=== PATIENT | female | born 1955 | race Two or more races ===

== ENCOUNTER 2021-09-28 09:14 | Inpatient (IN) | payer MEDICARE, OTHER ==
[~2021-09-28] VITALS: Ht 167.6 cm; Wt 81.6 kg
--- NOTE | 2021-09-28 09:30 | NUR ---
BIBFAMILY MEMBER FOR C/O CP 5/10 RADIATING TO L ARM AND BACK AT 0600 X30 MIN TODAY. DENIES SOB. FIRST TIME HAD CP WAS 10 DAYS AGO AND ON/OFF 4 DAYS. DENIES PAIN AT THIS TIME. IN ROOM AIR AND DENIES SOB. RESPIRATION REGULAR AND UNLABORED. ATTACHED THE PATIENT TO THE MONITOR. WILL CONTINUE TO MONITOR THE PATIENT.
--- NOTE | 2021-09-28 09:32 | NUR ---
DR FERNANDEZ AT THE BEDSIDE
--- NOTE | 2021-09-28 09:50 | NUR ---
COVID ANTIGEN SWAB DONE AND SENT TO THE LAB
--- NOTE | 2021-09-28 09:55 | NUR ---
BLOOD SAMPLE OBTAINED AND SENT TO LAB
--- NOTE | 2021-09-28 09:59 | NUR ---
X-RAY TECH AT THE BEDSIDE
[2021-09-28 10:13] LABS: CALCIUM, SERUM 9.2 mg/dL (8.5-10.1); CARBON DIOXIDE 25 mmol/L (21-32); CHLORIDE 105 mmol/L (98-107); CREATININE 0.7 mg/dL (0.6-1.3); GLUCOSE 121 mg/dL (74-106); POTASSIUM 4.2 mmol/L (3.5-5.1); SODIUM SERUM 139 mmol/L (136-145); UREA NITROGEN, BLOOD 13 mg/dL (7-18)
[2021-09-28 10:17] LABS: BASOPHILS % (AUTO) 0.7 % (0.0-2.0); HEMATOCRIT 37 % (33-45); HEMOGLOBIN 12.5 g/dL (11.5-14.8); LYMPHOCYTES # (AUTO) 1.9 K/uL (0.8-4.8); LYMPHOCYTES % (AUTO) 37.8 % (20.0-44.0); MEAN CORPUSCULAR HGB CONC 34 g/dl (31.0-36.0); MEAN CORPUSCULAR VOLUME 81 fL (82-100); MONOCYTES # (AUTO) 0.4 K/uL (0.1-1.30); MONOCYTES % (AUTO) 7.7 % (2.0-12.0); NEUTROPHILS # (AUTO) 2.6 K/uL (1.8-8.9); NEUTROPHILS % (AUTO) 50.8 % (43.0-81.0); PLATELET COUNT (AUTO) 58 K/uL (150-450); RED BLOOD CELL COUNT(AUTO) 4.55 MIL/uL (4.0-5.2); WHITE BLOOD COUNT (AUTO) 5.1 K/uL (4.3-11.0)
[2021-09-28] MEDS ORDERED: METF-440 PO (10:17)
[2021-09-28] MEDS ORDERED: ICOS1CAP PO (10:17)
[2021-09-28] MEDS ORDERED: MECL-159 PO (10:17)
[2021-09-28] MEDS ORDERED: LISI10TA29 PO (10:17)
[2021-09-28] MEDS ORDERED: LEVO88TA71 PO (10:17)
[2021-09-28 10:26] LABS: ALANINE AMINOTRANSFERASE 23 U/L (12-78); ALBUMIN 3.8 g/dL (3.4-5.0); ALKALINE PHOSPHATASE 46 U/L (46-116); ASPARTATE AMINOTRANSFERASE 14 U/L (15-37); BILIRUBIN,DIRECT 0.1 mg/dL (0.0-0.2); BILIRUBIN,TOTAL 0.3 mg/dL (0.2-1.0); TOTAL PROTEIN, SERUM 7.6 g/dL (6.4-8.2)
[2021-09-28 10:32] LABS: BAND % (MANUAL) 1 % (0.0-5.0); EOSINOPHILS % (MANUAL) 4 % (0-4); LYMPHOCYTES % (MANUAL) 47 % (16-48); MONOCYTES % (MANUAL) 4 % (0-11.0); NEUTROPHILS % (MANUAL) 44 (42-76)
--- NOTE | 2021-09-28 11:20 | NUR ---
PT LAYING IN BED COMFORTABLY, NEEDS MET
--- NOTE | 2021-09-28 12:45 | NUR ---
Jacob chaudhari in [facility] - 09/28/21 at 1250 by RADHA Patient discharged to home in stable condition. Written and verbal after care instructions given. Patient verbalizes understanding of instruction.
--- NOTE | 2021-09-28 12:50 | NUR ---
PT AMBULATED TO RESTROOM. VS STABLE
--- NOTE | 2021-09-28 13:03 | NUR ---
PT LAYING IN BED COMFORTABLY. NEEDS MET
[2021-09-28] MEDS ORDERED: DEXTROSE 50%-WATER 50 ML DISP.SYRIN IV PRN (15:00)
[2021-09-28] MEDS ORDERED: ONDANSETRON HCL/PF 4 MG/2 ML VIAL IVP PRN (15:00)
[2021-09-28] MEDS ORDERED: NITROGLYCERIN 0.4 MG/TAB BOTTLE SL PRN (15:00)
[2021-09-28] MEDS ORDERED: ACETAMINOPHEN 325 MG TABLET PO PRN (15:00)
[2021-09-28] MEDS ORDERED: INSULIN REGULAR, HUMAN 100 UNIT/ML 3 ML VIAL SQ PRN (15:00)
[2021-09-28] MEDS ORDERED: ENOXAPARIN SODIUM 40 MG/0.4 ML DISP.SYRIN SQ SCH (15:00)
[2021-09-28] MEDS ORDERED: MORPHINE SULFATE INJ 2 MG/ML DISP.SYRIN IV PRN (15:00)
[2021-09-28] MEDS ORDERED: Z GUARD REMEDY 4 OZ OINT TP PRN (15:00)
[2021-09-28] MEDS ORDERED: MAG HYDROX/AL HYDROX/SIMETH 30 ML UDC PO PRN (15:00)
[2021-09-28] MEDS ORDERED: *INSULIN REGULAR(HUMULIN R)HUM 100 UNIT/ML VIAL SQ PRN (15:00)
[2021-09-28] MEDS ORDERED: MAGNESIUM HYDROXIDE 30 ML UDC PO PRN (15:00)
[2021-09-28] MEDS ORDERED: MECLIZINE HCL 25 MG TABLET PO PRN (15:00)
[2021-09-28] MEDS ORDERED: Medication Not On Formulary EA (Icosapent Ethyl (Vascepa) 2 GM) PO SCH (17:00)
--- NOTE | 2021-09-28 18:07 | NUR ---
PT TRANSFERRED TO FLOOR FOLLOWING ACLS PROTOCOL WITH EMT AND RN. VS REMAINED STABLE. BEDSIDE REPORT GIVEN.
--- NOTE | 2021-09-28 18:10 | NUR ---
Patient arrived via gurney from ER department at 18:10pm. Patient AO X 4, able to make needs known, can follow simple commands, no apparent distress noted, breathing even and unlabored, no dizziness, no chest pain, no palpitations. Admitting hospitalist made aware of the patient's arrival. Patient admitting diagnosis chest pain. Patient's vital signs within normal limits, no complained of facial numbness or weakness, no extremity numbness or weakness at this time. Skin intact, warm to touch, no pallor or cyanosis noted. Patient oriented with use of call lights, use of bed control, use of telephone and tv control, also introduces LIGHT BULB TESTER and RN assigned for today, verbalized understanding and gratitude. All needs attended, kept clean and dry, call light left within reach, safety precautions in place, brakes locked, side rails up X 2.
--- NOTE | 2021-09-28 18:23 | NUR ---
RN CLOSING NOTES Patient lying in bed, respirations even and unlabored, no shortness of breath, denies any pain or discomfort at this time, remained afebrile, no apparent distress noted, no dizziness, no palpitations, no chest pain noted at this time. No s/s of hypo/hyperglycemia, no tremors, no change in level of consciousness. Patient has peripheral IV line on her left antecubital, patent, intact and flushing well, no s/s of infiltration at site, no swelling, no redness, no pain at site at this time. All needs attended, kept clean and dry, safety precautions in place, brakes locked, side rails up X 2, call light left within reach.
[2021-09-28] MEDS: BLOOD SUGAR DIAGNOSTIC 1 EACH STRIP VI SCH ×2 (18:47→21:54)
--- NOTE | 2021-09-28 19:30 | NUR ---
RN opening notes Received Pt from morning nurse. Pt is laying in bed comfortably talking on the phone with her niece Heather ([phone], [phone]). Pt is alert and orintedX4. On room air. No SOB. No S/S of distress noted. Pt denies any chest pain at this time. VS is stable. IV site at LAC# 20 is clean, intact and flushes well, SL. Pt is able to ambulates with a steady gait and assist. Safety precautions is maintained. Bed at low position, brakes locked, side rails upX3, hob elevated and call light is within reach. Will continue to monitor.
[2021-09-28 19:52] VITALS: BP 137/81
[2021-09-28 20:00] VITALS: BP 137/81
--- NOTE | 2021-09-28 21:55 | NUR ---
RN notes Pt's blood sugar at 2200 is 113 no coverage is given. No S/S of distress noted. Will continue to monitor.
--- NOTE | 2021-09-28 22:00 | NUR ---
RN notes Checked Pt's belonging list with Pt. Pt informed that Pt's gave Heather (Pt's niece that works in [employer]) Pt's money, bracelet, necklace and wallet to home. Pt signed the belonging lists form.
--- NOTE | 2021-09-28 22:16 | NUR ---
RN notes Called xray and spoke with Jessica regarding CT angio heart with 3D. Jessica informed that the tech will be here tomorrow morning.
[2021-09-29] VITALS (7 sets, daily range): BP systolic 109–146; BP diastolic 59–98
--- NOTE | 2021-09-29 06:30 | NUR ---
RN closing notes Pt is resting in bed comfortably. Pt is alert and orientedX4. On room air. No SOB. No S/S of distress noted. VS is stable. Tele monitor showed SR hr at 76. IV site at LAC# 20 is clean, intact and flushes well, SL. Kept Pt clean, dry and comfortable. Safety precautions is maintained. Bed at low position, brakes locked, bed alarm is on, side rails upX3, hob elevated and call light is within reach. Will endorse to am nurse for RIKA.
[2021-09-29] MEDS: BLOOD SUGAR DIAGNOSTIC 1 EACH STRIP VI SCH ×4 (06:42→22:22)
[2021-09-29] MEDS: LEVOTHYROXINE SODIUM 88 MCG TABLET PO SCH (06:42)
[2021-09-29 07:30] LABS: CALCIUM, SERUM 9.1 mg/dL (8.5-10.1); CREATININE 0.8 mg/dL (0.6-1.3); MAGNESIUM 2.2 mg/dL (1.8-2.4); PHOSPHORUS 4.5 mg/dL (2.5-4.9)
[2021-09-29 07:36] LABS: BASOPHILS # (AUTO) 0.1 K/uL (0.0-0.2); BASOPHILS % (AUTO) 1.2 % (0.0-2.0); EOSINOPHILS % (AUTO) 3.5 % (0.0-6.0); HEMATOCRIT 36 % (33-45); LYMPHOCYTES % (AUTO) 39.8 % (20.0-44.0); MEAN CORPUSCULAR HGB CONC 34 g/dl (31.0-36.0); MEAN CORPUSCULAR VOLUME 82 fL (82-100); MONOCYTES # (AUTO) 0.3 K/uL (0.1-1.30); MONOCYTES % (AUTO) 6.5 % (2.0-12.0); NEUTROPHILS # (AUTO) 2.5 K/uL (1.8-8.9); RED BLOOD CELL COUNT(AUTO) 4.38 MIL/uL (4.0-5.2)
--- NOTE | 2021-09-29 07:59 | NUR ---
RN OPENING NOTE PATIENT IN BED RESTING, SLEEPING, AWAKENS TO VERBAL STIMULI. A/O X 4. NO S/S OF PAIN NOTED AT THIS TIME. ON ROOM AIR, NO DISTRESS OR SHORTNESS OF BREATH NOTED. IV ACCESS LAC #20G INTACT, PATENT AND FLUSHING WELL. FALL AND SAFETY MEASURES IN PLACE, BED ALARM ON, BED IN LOW AND LOCK POSITION, CALL LIGHT AND TABLE WITHIN EASY REACH, SIDE RAILS UP X2. WILL CONTINUE TO MONITOR.
[2021-09-29 08:19] LABS: PLATELET COUNT (AUTO) 49 K/uL (150-450)
[2021-09-29] MEDS ORDERED: METFORMIN 500 MG TABLET PO SCH (09:00)
[2021-09-29] MEDS: LISINOPRIL (10MG) 10 MG TABLET PO SCH (10:23)
[2021-09-29] MEDS ORDERED: METOPROLOL TARTRATE INJ 5 MG/5 ML AMPUL ONE (10:28)
[2021-09-29] MEDS ORDERED: NITROGLYCERIN 0.4 MG/TAB BOTTLE ONE (10:28)
[2021-09-29] MEDS ORDERED: IOHEXOL-350 100 ML VIAL IV ONE (10:28)
[2021-09-29] MEDS ORDERED: IV NS 0.9% 250 ML IV ONE (10:28)
[2021-09-29] MEDS ORDERED: CT SWABBABLE VALVE TRANS SET 1 EA INFUS.SET MC ONE (10:28)
[2021-09-29] MEDS: METOPROLOL TARTRATE INJ 5 MG/5 ML AMPUL IVP PRN ×2 (10:39→10:44)
[2021-09-29] MEDS ORDERED: NITROGLYCERIN 0.4 MG/TAB BOTTLE SL PRN (11:00)
[2021-09-29 16:25] LABS: LYMPHOCYTES % (MANUAL) 40 % (16-48); NEUTROPHILS % (MANUAL) 50 (42-76)
[2021-09-29 16:26] LABS: EOSINOPHILS % (MANUAL) 4 % (0-4); MONOCYTES % (MANUAL) 6 % (0-11.0)
--- NOTE | 2021-09-29 19:39 | NUR ---
RN CLOSING NOTE PATIENT IN BED RESTING, SLEEPING, AWAKENS TO VERBAL STIMULI. A/O X 4. NO S/S OF PAIN NOTED AT THIS TIME. ON ROOM AIR, NO DISTRESS OR SHORTNESS OF BREATH NOTED. IV ACCESS LAC #20G INTACT, PATENT AND FLUSHING WELL. FALL AND SAFETY MEASURES IN PLACE, BED ALARM ON, BED IN LOW AND LOCK POSITION, CALL LIGHT AND TABLE WITHIN EASY REACH, SIDE RAILS UP X2. WILL ENDORSE TO SECOND RIDE FARE COLLECTOR.
--- NOTE | 2021-09-29 19:45 | NUR ---
DIGITAL OPERATIONS ANALYST NOTES ST-116 ON TELE MONITOR,RECEIVED ON BED A/O X4,SPEAK GERMAN,FAMILY MEMBER AT BEDSIDE.WITH SALINE LOCK RIGHT AC #18 AND LEFT AC #20,BOTH INTACT AND PATENT.INSTRUCTED NPO POST MIDNIGHT GOING FOR HEART CATH IN THE MORNING,CONSENT ON CHART.DENIES CHEST PAIN AT THE MOMENT,O2 SAT 97% ON ROOM AIR.CALL LIGHT IN REACH,NEEDS ANTICIPATED.
--- NOTE | 2021-09-29 22:00 | NUR ---
VACUUM PLASTIC FORMING MACHINE OPERATOR NOTES ACCU-CHECK BLOOD SUGAR CHECK 96,NO INSULIN COVERAGE.
[2021-09-30] VITALS: BP 134/77
--- NOTE | 2021-09-30 | NUR ---
MORNING NEWS PRODUCER NOTES INSTRUCTED ONCE AGAIN NOTHING BY MOUTH STARTED THIS TIME FOR MORNING PROCEDURE.PATIENT VERBALIZING UNDERSTANDING.
[2021-09-30 04:00] VITALS: BP 120/61
--- NOTE | 2021-09-30 05:30 | NUR ---
PATIENT SERVICE REP NOTES ACCU-CHECK BLOOD SUGAR CHECK 97,NO INSULIN COVERAGE.
--- NOTE | 2021-09-30 06:37 | NUR ---
RECORDIST CHIEF NOTES IN ROOM AWAKE,ALERT,MORNING CARE SELF RENDERED.NPO SINCE MIDNIGHT FOR HEART CATH,AWAITING TO BE HEALTH INFORMATION PROVIDER.SALINE LOCK RIGHT AND LEFT AC INTACT AND PATENT.IN NO ACUTE DISTRESS.CALL LIGHT IN REACH,NEEDS ATTENDED.
[2021-09-30 07:04] LABS: BASOPHILS % (AUTO) 0.6 % (0.0-2.0); HEMATOCRIT 39 % (33-45); HEMOGLOBIN 12.9 g/dL (11.5-14.8); LYMPHOCYTES # (AUTO) 2.4 K/uL (0.8-4.8); LYMPHOCYTES % (AUTO) 37.5 % (20.0-44.0); MEAN CORPUSCULAR HGB CONC 33 g/dl (31.0-36.0); MEAN CORPUSCULAR VOLUME 82 fL (82-100); MONOCYTES # (AUTO) 0.4 K/uL (0.1-1.30); MONOCYTES % (AUTO) 6.7 % (2.0-12.0); NEUTROPHILS # (AUTO) 3.4 K/uL (1.8-8.9); NEUTROPHILS % (AUTO) 53.2 % (43.0-81.0); RED BLOOD CELL COUNT(AUTO) 4.74 MIL/uL (4.0-5.2); WHITE BLOOD COUNT (AUTO) 6.3 K/uL (4.3-11.0)
[2021-09-30 07:16] LABS: CALCIUM, SERUM 9.2 mg/dL (8.5-10.1); CREATININE 0.8 mg/dL (0.6-1.3); POTASSIUM 4.4 mmol/L (3.5-5.1)
[2021-09-30] MEDS: LEVOTHYROXINE SODIUM 88 MCG TABLET PO SCH (07:30)
--- NOTE | 2021-09-30 07:30 | NUR ---
DISTRIBUTION OPERATION SUPERVISOR NOTES PT IN BED, AWAKE, ALERT AND ORIENTED, DENIES CHEST PAIN, NO SOB, CALL LIGHT WITHIN REACH, PT INFORMED OF PLAN OF CARE, FOR CARDIAC CATH TODAY, KEPT NPO, NEEDS ATTENDED.
[2021-09-30] MEDS ORDERED: IV SET PRIMARY PUMP SET 1 EA INFUS.SET MC ONE (07:45)
[2021-09-30] MEDS ORDERED: IV NS 0.9% 1,000 ML ONE (07:45)
[2021-09-30] MEDS ORDERED: LIDOCAINE HCL/PF 1% 30 ML SDV ONE (07:46)
[2021-09-30] MEDS ORDERED: IODIXANOL 150 ML IV ONE (07:46)
[2021-09-30 08:00] VITALS: BP 132/78
[2021-09-30] MEDS: BLOOD SUGAR DIAGNOSTIC 1 EACH STRIP VI SCH ×2 (08:53→12:44)
[2021-09-30 09:00] VITALS: BP 132/78
[2021-09-30] MEDS: LISINOPRIL (10MG) 10 MG TABLET PO SCH (09:00)
[2021-09-30] MEDS ORDERED: FENTANYL PF 100MCG/2ML AMPUL ONE (09:10)
[2021-09-30] MEDS ORDERED: MIDAZOLAM HCL 2 MG/2ML VIAL ONE (09:10)
[2021-09-30] MEDS ORDERED: NITROGLYCERIN IN 5 % DEXTROSE 250 ML IV ONE (09:11)
[2021-09-30] MEDS ORDERED: HEPARIN SODIUM, PORCINE 1,000 UNIT/ML VIAL ONE ×2 (10:06→10:35)
[2021-09-30 10:27] LABS: PLATELET COUNT (AUTO) 56 K/uL (150-450)
[2021-09-30] MEDS ORDERED: IV NS 0.9% 1,000 ML IV SCH (12:30)
--- NOTE | 2021-09-30 17:18 | NUR ---
GRANITE CUTTER APPRENTICE NOTES PT IN BED, AWAKE, ALERT AND ORIENTED, NO COMPLAINT OF PAIN, NOT IN DISTRESS, IV FLUIDS INFUSING ORDERED, DAUGHTER AT BEDSIDE, PT COMPLETED CARDIAC CATH, POST PROCEDURE ORDERS NOTED AND CARRIED OUT, TR BAND TO RIGHT WRIST SLOWLY DEFLATED ORDERED, NO BLEEDING NOTED, PRESSURE DRESSING APPLIED TO SITE, PT SEEN BY DR. LOERA, PROCEDURE RESULT DISCUSSED WITH PT, VERBALIZED UNDERSTANDING, MD CLEARED PT FOR DISCHARGE, DR. PAINTER INFORMED, MD GAVE DISCHARGE ORDER, DISCHARGE AND MEDICATION INSTRUCTIONS PROVIDED TO PT,VERBALIZED UNDERSTANDING, BELONGINGS ACCOUNTED FOR, ASSISTED PT TO HOSPITAL LOBBY, LEFT WITH DAUGHTER IN STABLE CONDITION.
== END 2021-09-30 17:20 | disposition home or self-care (01) | DRG 287 ==
LOC: ER 09:27 → TRANSITION 12:56 → TELE 17:35
PROVIDERS: ADMIT Internal Medicine; ATTEND Internal Medicine
PROC: 4A023N7 Measurement of Cardiac Sampling and Pressure, Left Heart, Percutaneous Approach (ICD-10-PCS; principal; 2021-09-30)
PROC: B2111ZZ Fluoroscopy of Multiple Coronary Arteries using Low Osmolar Contrast (ICD-10-PCS; 2021-09-30)
DX: I25.110 Atherosclerotic heart disease of native coronary artery with unstable angina pectoris (principal); D69.6 Thrombocytopenia, unspecified; E78.5 Hyperlipidemia, unspecified; E11.9 Type 2 diabetes mellitus without complications; I10 Essential (primary) hypertension; E78.00 Pure hypercholesterolemia, unspecified; Z79.84 Long term (current) use of oral hypoglycemic drugs; Z79.899 Other long term (current) drug therapy; Z20.822 Contact with and (suspected) exposure to COVID-19
CPT/HCPCS: 36415; 71045-TC; 75574; 80048-TC; 80061-TC; 80076-TC; 82962-TC; 83735-TC; 83880; 84100-TC; 84484-TC; 85025-TC; 85378-TC; 85610-TC; 87081-TC; 93307-TC; C1769; C1887; C9803; G0378; G0500; J1644; J1815; J2250; J3010; J3490; J7030; J7050; Q9967